=== PATIENT | female | born 1995 | race Caucasian/White ===

== ENCOUNTER 2018-03-21 10:47 | Outpatient (CLI) | payer OTHER, MEDICAID ==
--- NOTE | 2018-03-21 11:21 | Non Stress Test Report ---
Non Stress Test Datetime Report Generated by CPN: 03/21/2018 11:20 DEMOGRAPHIC EGA NST: 34.0 INDICATION Indication for Study: Ordered by Provider Indication for Study (NST) Other: repeat NST from office VITAL SIGNS Temperature - NST: 98.6 RESP - NST: 16 MONITORING Monitor Explained: Monitor Explained; Test Explained; Patient Verbalized Understanding Time on Monitor: 03/21/2018 10:52 Time off Monitor: 03/21/2018 11:18 NST Duration: 26 NST INTERVENTIONS NST Interventions: None Physician Notified NST: Dr Wheeler BABY A: [id number] BABY A Movement : Present Contraction Frequency : none FHR Baseline : 145 Accelerations : 15X15 Decelerations : None Variability : Moderate 6-25bpm Variability : Moderate 6-25bpm NST Review: Meets Criteria for Reactive NST NST Review and Verified By : suzanne patrick RN NST Results: Reactive NST REPORT Report Trigger: Send Report
== END 2018-03-21 11:25 | disposition home or self-care (01) ==
LOC: LC 10:47
PROVIDERS: ATTEND Obstetrics & Gynecology Gynecology
PROC: 4A1HXCZ Monitoring of Products of Conception, Cardiac Rate, External Approach (ICD-10-PCS; principal; 2018-03-21)
DX: Z34.90 Encounter for supervision of normal pregnancy, unspecified, unspecified trimester (principal); Z3A.33 33 weeks gestation of pregnancy
CPT/HCPCS: 59025

== ENCOUNTER 2018-03-26 08:09 | Outpatient (CLI) | payer OTHER, MEDICAID ==
[2018-03-26 08:35] LABS: APPEARANCE,URINE CLOUDY; BILIRUBIN,URINE SMALL (NEGATIVE); CALCIUM OXALATE CRYSTALS,URINE MANY /HPF; COLOR,URINE AMBER; GLUCOSE, URINE 50 mg/dL (NEGATIVE); KETONES,URINE 20 mg/dL (NEGATIVE); LEUKOCYTE ESTERASE,URINE MODERATE (NEGATIVE); NITRITE,URINE NEGATIVE (NEGATIVE); PROTEIN,URINE 100 mg/dL (NEGATIVE); URINE SPECIFIC GRAVITY 1.035
[2018-03-26] MEDS ORDERED: RINGERS SOLUTION,LACTATED 1,000 ML IV ONE (08:41)
[2018-03-26 09:15] LABS: URINE AMPHETAMINES SCREEN NEGATIVE; URINE BARBITURATES SCREEN NEGATIVE; URINE BENZODIAZEPINES SCREEN NEGATIVE; URINE COCAINE SCREEN NEGATIVE; URINE MARIJUANA (THC) SCREEN NEGATIVE; URINE METHADONE SCREEN NEGATIVE; URINE PHENCYCLIDINE SCREEN NEGATIVE
[2018-03-26] MEDS ORDERED: CEFTRIAXONE INJ 1000 MG VIAL ONE (09:59)
== END 2018-03-26 12:39 | disposition home or self-care (01) ==
LOC: LC 08:09
PROVIDERS: ATTEND Obstetrics & Gynecology
PROC: 4A1HXCZ Monitoring of Products of Conception, Cardiac Rate, External Approach (ICD-10-PCS; principal; 2018-03-26)
DX: O21.9 Vomiting of pregnancy, unspecified (principal); O26.893 Other specified pregnancy related conditions, third trimester; R10.2 Pelvic and perineal pain; R51 Headache; R35.0 Frequency of micturition; R42 Dizziness and giddiness; R19.7 Diarrhea, unspecified; Z3A.39 39 weeks gestation of pregnancy
CPT/HCPCS: 59025; 87086; 81001; 80307; J0696

== ENCOUNTER 2018-04-17 14:25 | Outpatient (CLI) | payer OTHER, MEDICAID ==
--- NOTE | 2018-04-17 15:45 | Non Stress Test Report ---
Non Stress Test Datetime Report Generated by CPN: 04/17/2018 15:45 DEMOGRAPHIC EGA NST: 37.6 EGA NST: 34.5 INDICATION Indication for Study: Diabetes Mellitus; Ordered by Provider Indication for Study: Other Indication for Study (NST) Other: LABOR CHECK VITAL SIGNS Temperature - NST: 98.3 Pulse - NST: 111 RESP - NST: 18 NBPSYS NST: 112 NBPDIA NST: 69 MONITORING Monitor Explained: Monitor Explained; Test Explained; Patient Verbalized Understanding Monitor Explained: Monitor Explained; Test Explained; Patient Verbalized Understanding Time on Monitor: 04/17/2018 14:37 Time on Monitor: 03/26/2018 08:35 Time off Monitor: 04/17/2018 15:04 Time off Monitor: 03/26/2018 12:22 NST Duration: 27 NST Duration: 227 NST INTERVENTIONS NST Interventions: PO Hydration; Reposition Patient NST Interventions: PO Hydration; IV Fluids; Reposition Patient Physician Notified NST: Isiah BERMUDEZ CNM REVIEWED STRIP (Annotations: Data stored by KELLI on behalf of user) Physician Notified NST: A QUINONES, CNM BABY A: [id number] BABY A Movement : Present Movement : Present Contraction Frequency : OCC Contraction Frequency : OCC FHR Baseline : 135 FHR Baseline : 130 Accelerations : 15X15 Accelerations : 15X15 Decelerations : None Decelerations : None Variability : Moderate 6-25bpm Variability : Moderate 6-25bpm NST Review: Meets Criteria for Reactive NST NST Review: Meets Criteria for Reactive NST NST Review and Verified By : Shelby Melchor [facility] NST Results: Reactive NST Results: Reactive NST REPORT Report Trigger: Send Report
== END 2018-04-17 15:07 | disposition home or self-care (01) ==
LOC: LC 14:25
PROVIDERS: ATTEND Obstetrics & Gynecology Gynecology
PROC: 4A1HXCZ Monitoring of Products of Conception, Cardiac Rate, External Approach (ICD-10-PCS; principal; 2018-04-17)
DX: O24.419 Gestational diabetes mellitus in pregnancy, unspecified control (principal); Z3A.37 37 weeks gestation of pregnancy
CPT/HCPCS: 59025

== ENCOUNTER 2018-04-22 11:39 | Outpatient (CLI) | payer OTHER, MEDICAID ==
--- NOTE | 2018-04-22 12:32 | Non Stress Test Report ---
Non Stress Test Datetime Report Generated by CPN: 04/22/2018 12:31 DEMOGRAPHIC EGA NST: 38.4 INDICATION Indication for Study: Diabetes Mellitus; Ordered by Provider VITAL SIGNS Temperature - NST: 99.2 Pulse - NST: 105 RESP - NST: 18 NBPSYS NST: 113 NBPDIA NST: 75 MONITORING Monitor Explained: Monitor Explained; Test Explained; Patient Verbalized Understanding Time on Monitor: 04/22/2018 11:47 Time off Monitor: 04/22/2018 12:21 NST Duration: 34 NST INTERVENTIONS NST Interventions: PO Hydration; Reposition Patient Physician Notified NST: A QUINONES, CNM REVIEWED STRIP BABY A: [id number] BABY A Movement : Present Contraction Frequency : x1 FHR Baseline : 145 Accelerations : 15X15 Decelerations : None Variability : Moderate 6-25bpm NST Review: Meets Criteria for Reactive NST NST Review and Verified By : PASTORA Fernandes Results: Reactive NST REPORT Report Trigger: Send Report
== END 2018-04-22 12:25 | disposition home or self-care (01) ==
LOC: LC 11:39
PROVIDERS: ATTEND Obstetrics & Gynecology Gynecology
PROC: 4A1HXCZ Monitoring of Products of Conception, Cardiac Rate, External Approach (ICD-10-PCS; principal; 2018-04-22)
DX: O24.415 Gestational diabetes mellitus in pregnancy, controlled by oral hypoglycemic drugs (principal); Z3A.38 38 weeks gestation of pregnancy
CPT/HCPCS: 59025

== ENCOUNTER 2018-04-25 18:09 | Inpatient (IN) | payer OTHER, MEDICAID ==
[2018-04-25] MEDS ORDERED: DINOPROSTONE 10 MG VAGINAL INSERT.SR ONE (18:24)
[2018-04-25 19:29] LABS: ABSOLUTE LYMPHOCYTES (AUTO) 1.7 10^3/uL (0.5-4.7); ABSOLUTE MONOCYTES (AUTO) 0.6 10^3/uL (0.1-1.4); BASOPHILS % (AUTO) 0.3 % (0-2); EOSINOPHILS % (AUTO) 0.3 % (0-6); HEMATOCRIT 27.6 % (36.0-47.0); HEMOGLOBIN 9.4 g/dL (12.0-15.5); LYMPHOCYTES % (AUTO) 17.8 % (13-45); MEAN CORPUSCULAR HEMOGLOBIN 25.2 pg (27.0-33.4); MEAN CORPUSCULAR HGB CONC 34.2 g/dL (32.0-36.0); MEAN CORPUSCULAR VOLUME 74 fl (80-97); MONOCYTES % (AUTO) 6.1 % (3-13); PLATELET COUNT 190 10^3/uL (150-450); RED BLOOD COUNT 3.74 10^6/uL (3.72-5.28); RED CELL DISTRIBUTION WIDTH 16.5 % (11.5-14.0); SEGMENTED NEUTROPHILS % (AUTO) 75.5 % (42-78); TOTAL CELLS COUNTED % (AUTO) 100 %; WHITE BLOOD COUNT 9.3 10^3/uL (4.0-10.5)
[2018-04-25] MEDS ORDERED: MISOPROSTOL 0.2 MG TABLET ONE (19:30)
[2018-04-25] MEDS ORDERED: OXYTOCIN/NORMAL SALINE 20 UNIT/1,000 ML RTUINJ ONE (19:30)
[2018-04-25] MEDS ORDERED: OXYTOCIN 10 UNIT/ML VIAL ONE (19:30)
[2018-04-25] MEDS ORDERED: LIDOCAINE 1% INJ-PF (10 MG/ML) 30 ML SDV ONE (19:30)
[2018-04-25 19:42] LABS: APPEARANCE,URINE CLOUDY; BILIRUBIN,URINE NEGATIVE (NEGATIVE); COLOR,URINE YELLOW; GLUCOSE, URINE NEGATIVE (NEGATIVE); KETONES,URINE 20 mg/dL (NEGATIVE); LEUKOCYTE ESTERASE,URINE LARGE (NEGATIVE); NITRITE,URINE NEGATIVE (NEGATIVE); PROTEIN,URINE NEGATIVE (NEGATIVE); URINE SPECIFIC GRAVITY 1.011; UROBILINOGEN,URINE NEGATIVE mg/dL (<2.0)
[2018-04-25 20:11] LABS: URINE AMPHETAMINES SCREEN NEGATIVE; URINE BARBITURATES SCREEN NEGATIVE; URINE BENZODIAZEPINES SCREEN NEGATIVE; URINE COCAINE SCREEN NEGATIVE; URINE MARIJUANA (THC) SCREEN NEGATIVE; URINE METHADONE SCREEN NEGATIVE; URINE PHENCYCLIDINE SCREEN NEGATIVE
[2018-04-26] MEDS ORDERED: OXYTOCIN/NORMAL SALINE 20 UNIT/1,000 ML RTUINJ IV PRN ×2 (08:38→12:46)
[2018-04-26] MEDS ORDERED: RINGERS SOLUTION,LACTATED 1,000 ML IV PRN (08:45)
[2018-04-26] MEDS ORDERED: EPHEDRINE SULFATE INJ 50 MG/1 ML AMPULE ONE (10:00)
[2018-04-26] MEDS ORDERED: PHENYLEPHRINE HCL INJ/PF 10 MG/1 ML SDV ONE (10:00)
[2018-04-26] MEDS ORDERED: FENTANYL CITRATE INJ/PF 100 MCG/2 ML AMPUL ONE ×2 (10:00→11:20)
[2018-04-26] MEDS ORDERED: BUPIVACAINE HCL 0.25 % INJ/PF (2.5 MG/1 ML) 30 ML VIAL ONE (10:00)
[2018-04-26] MEDS ORDERED: FENTANYL/BUPIVACAINE/NS/PF 0 MCG/0 ML RTUINJ EPI ONE (10:01)
[2018-04-26] MEDS ORDERED: METHYLERGONOVINE MALEATE INJ/PF 0.2 MG/1 ML AMPULE ONE (11:24)
--- NOTE | 2018-04-26 12:17 | Delivery Summary ---
Del Sum A-C Datetime Report Generated by CPN: 04/26/2018 12:17 DELIVERY PERSONNEL DELIVERY PERSONNEL: [id number] Delivery Doctor:: Gladys Dumont CNM Nurse Manager Security Certified:: Gladys Dumont CNM Labor and Delivery Nurse:: Salma Washington RNtruck switcher Nurse:: Zuleyka Tobar RN Nursery Nurse:: Nicholas Abid RN Student Observers:: [facility] MATERNAL INFORMATION Delivery Anesthesia: None Medications After Delivery: Pitocin Drip 20 Units/1000ml NSS; Methergine 0.2mg IM; Cytotec 1000mcg Per Rectum/Vagina Maternal Complications: None Complication Details: Shoulder Dystocia-1min 12 sec LABOR SUMMARY EDC: 05/02/2018 00:00 No. Babies in Womb: 1 Attempted: No Labor Anesthesia: None LABOR INFORMATION Reason for Induction: Polyhydramnios Reason for Induction- Other: GDM Onset of Labor: 04/26/2018 09:05 Complete Dilatation: 04/26/2018 10:50 Cervical Ripening Agents: Cervidil Oxytocin: Augmentation Group B Beta Strep: NEGATIVE MEMBRANES Membranes Rupture Method: Spontaneous Rupture of Membranes: 04/26/2018 09:00 Length of Rupture (hr): 2.15 Amniotic Fluid Color: Clear Amniotic Fluid Amount: Moderate Amniotic Fluid Odor: Normal STAGES OF LABOR Stage 1 hr: 1 Stage 1 min: 45 Stage 2 hr: 0 Stage 2 min: 19 Stage 3 hr: 0 Stage 3 min: 8 Total Time in Labor hr: 2 Total Time in Labor min: 12 VAGINAL DELIVERY Episiotomy: None Laceration #1: Periurethral Laceration Extension #1: Second Degree Laceration Repair: Yes Sponge Count Correct: N/A Sharps Count Correct: N/A BABY A INFORMATION Infant Delivery Date/Time: 04/26/2018 11:09 Method of Delivery: Vaginal Born in Route : No : N/A Forceps: N/A Vacuum Extraction: N/A Shoulder Dystocia : Yes SHOULDER DYSTOCIA BABY A Delivery of Head: 04/26/2018 11:08 Time Head to Delivery : 1.0 1st Intervention to Resolve: McRobert's Maneuver 2nd Intervention to Resolve: Suprapubic Pressure Verify NO Fundal Pressure: No Fundal Pressure Applied PRESENTATION/POSITION BABY A Presentation: Cephalic Cephalic Presentation: Vertex Vertex Position: Left Occipital Anterior Breech Presentation: N/A PLACENTA INFORMATION BABY A Placenta Delivery Time : 04/26/2018 11:17 Placenta Method of Delivery: Spontaneous Placenta Status: Delivered SCORES BABY A Heart Rate 1 min: >100 bpm Resp Effort 1 min: Good Cry Reflex Irritability 1 min: Cough or Sneeze or Pulls Away Muscle Tone 1 min: Some Flexion of Extremities Color 1 min: Body Long Barn, Extremities Blue SCORE 1 MIN: 8 Heart Rate 5 min: >100 bpm Resp Effort 5 min: Good Cry Reflex Irritability 5 min: Cough or Sneeze or Pulls Away Muscle Tone 5 min: Active Motion Color 5 min: Body Long Barn, Extremities Blue SCORE 5 MIN: 9 INFANT INFORMATION BABY A Gestational Age at Delivery: 39.1 Gestational Status: Full Term- 39- 40.6 Weeks Infant Outcome : Liveborn Condition : Stable Sex: Female IDENTIFICATION BABY A Verification Date/Time: 04/26/2018 11:40 ID Band Number: [id number] Mother's Name Verified: Yes RN Verifying : r emma RN Additional Verifying Personnel: troy lujanabdulaziz RN CORD INFORMATION BABY A No. Cord Vessels: 3 Nuchal Cord : N/A Cord Blood Taken: Yes-For Storage (Mom's Blood type +) Infant Suction: None ASSESSMENT BABY A Complications: Shoulder Dystocia Physical Findings at Delivery: Molding of the Head Respirations: Appears Normal Construction Contractor/ALS Called : No Care By: Nicholas Abdi RN Transferred To: Remains with Mother BABY B INFORMATION : N/A
[2018-04-26] MEDS ORDERED: METHYLERGONOVINE MALEATE INJ/PF 0.2 MG/1 ML AMPULE IM PRN (12:46)
[2018-04-26] MEDS ORDERED: ACETAMINOPHEN 650 MG SUPP.RECT PR PRN (12:46)
[2018-04-26] MEDS ORDERED: MAGNESIUM HYDROXIDE SUSP 30 ML UDCUP PO PRN (12:46)
[2018-04-26] MEDS ORDERED: MEASLES,MUMPS&RUBELLA VACC/PF 0.5 ML VIAL SUBCUT PRN (12:46)
[2018-04-26] MEDS ORDERED: DIBUCAINE 1% OINTMENT 28 GM TP PRN (12:46)
[2018-04-26] MEDS ORDERED: GLYCERIN/WITCH HAZEL LEAF 1 EACH MED..PAD TP PRN (12:46)
[2018-04-26] MEDS ORDERED: ZOLPIDEM TARTRATE 5 MG TABLET PO PRN (12:46)
[2018-04-26] MEDS ORDERED: DIPHENHYDRAMINE HCL 25 MG CAPSULE PO PRN (12:46)
[2018-04-26] MEDS ORDERED: PROMETHAZINE HCL 25 MG TABLET PO PRN (12:46)
[2018-04-26] MEDS ORDERED: DIPH/PERTUSS(ACELL)/TETANUS VAC/PF 0.5 ML SYR (>=10YO) IM PRN (12:46)
[2018-04-26] MEDS ORDERED: MISOPROSTOL 0.2 MG TABLET PR PRN (12:46)
[2018-04-26] MEDS ORDERED: NA PHOS,M-B/NA PHOS,DI-BA (ADULT) 133 ML ENEMA PR PRN (12:46)
[2018-04-26] MEDS ORDERED: ACETAMINOPHEN WITH CODEINE #3 TABLET PO PRN ×2 (12:46)
[2018-04-26] MEDS ORDERED: PROMETHAZINE HCL INJ 25 MG/1 ML VIAL IV PRN (12:46)
[2018-04-26] MEDS ORDERED: PROMETHAZINE HCL 25 MG SUPP.RECT PR PRN (12:46)
[2018-04-26] MEDS ORDERED: PSEUDOEPHEDRINE HCL 30 MG TABLET PO PRN (12:46)
--- NOTE | 2018-04-26 13:07 | Admission Physical ---
Datetime Report Generated by CPN: 04/26/2018 13:06 CURRENT ADMISSION Chief Complaint: Scheduled Induction of Labor Indication for Induction: Maternal Diabetes Indication for Induction- Other: gestational diabetes, polyhydramnios Admit Impression : Term, Intrauterine ; No Active Labor Admit Plan: Admit to Unit; Initiate Labor Induction Protocol Admit Plan- Other: s/p cervidil this am, SROM at approx 0845 and pitocin started ALLERGIES Medication Allergies: No Medication Allergies: No Known Allergies (04/22/2018) Latex: No Latex Allergies OBSTETRICAL HISTORY EDC: 05/02/2018 00:00 : 1 Para: 0 Term: 0 : 0 SAB: 0 IAB: 0 Ectopic: 0 Livin Cesareans: 0 VBACs: 0 Multiple Births: 0 Gestational Diabetes: Yes Rh Sensitization: No Incompetent Cervix: No DIMAS: No Infertility: No ART Treatment: No Uterine Anomaly: No IUGR: No Hx Previous C/S: No Macrosomia: No Hx Loss/Stillborn: No PIH: No Hx : No Placenta Previa/Abruption: No Depression/PP Depression: No PTL/PROM: No Post Hemorrhage: No Current Procedures: Ultrasound Obstetrical History Comments: Current - GDM on metformin, pt was told that she was unable to conceive, pt became w/o infertility drugs. SEE RECORDS Alcohol: No Marijuana : No Cocaine: No Other Illicit Drugs: No Cigarettes: Never Smoker. [id number] MEDICAL HISTORY Diabetes: Yes Diabetes Type: Gestational Diabetes Blood Transfusion: No Pulmonary Disease (Asthma, TB): No Breast Disease: No Hypertension: No Trucker Surgery: No Heart Disease: No Hosp/Surgery: No Autoimmune Disorder: No Anesthetic Complications: No Kidney Disease: No Abnormal Pap Smear: No Neuro/Epilepsy: No Psychiatric Disorders: No Other Medical Diseases: No Hepatitis/Liver Disease: No Significant Family History: No Varicosities/Phlebitis: No Trauma/Violence : No Thyroid Dysfunction: No Medical History Comments: pituitary adenoma, pt was taking medication before for it, will resume taking meds after delivery. INFECTIOUS HISTORY Gonorrhea: No Genital Herpes: No Chlamydia: No Tuberculosis: No Syphilis: No Hepatitis: No HIV/AIDS Exposure: No Rash or Viral Illness: No HPV: No PHYSICAL EXAM General: Normal HEENT: Normal Neurologic: Normal Thyroid: Deferred Heart: Normal Lungs: Normal Breast: Deferred Back: Normal Abdomen: Normal Genitourinary Exam: Normal Extremities: Normal DTRs: Deferred Pelvic Type: Adequate Vital Signs: Reviewed; Within Normal Limits MEMBRANES Membranes: Ruptured Amniotic Fluid Color: Clear FETUS A EGA: 39.1 Monitoring: External US FHR- Baseline: 135 Variability: Moderate 6-25bpm Accelerations: 15X15 Decelerations: Variable FHR Category: Category II Admit Comment: at 39+1 with GDM and polyhydramnios admitted for IOL PLANS FOR LABOR AND DELIVERY Labor and Delivery: None Pain Management: Natural; Medications; Epidural Feeding Preference: Formula Benefit of Breast Feed Discussed: Yes Circumcision: N/A INFORMED CONSENT Assignment: Cassandra Zuniga MD Signature: with User ID: [email or web address] : with User ID: [email or web address]
[2018-04-26] MEDS: IBUPROFEN 800 MG TABLET PO SCH ×2 (14:23→21:45)
[2018-04-26] MEDS: FERROUS SULFATE 325 MG TABLET PO SCH (18:22)
[2018-04-26] MEDS: DOCUSATE SODIUM 100 MG CAPSULE PO SCH (18:22)
[2018-04-26] MEDS: FAMOTIDINE 20 MG TABLET PO SCH (21:46)
[2018-04-27] MEDS: IBUPROFEN 800 MG TABLET PO SCH ×3 (05:03→22:19)
[2018-04-27 08:15] LABS: ABSOLUTE LYMPHOCYTES (AUTO) 1.6 10^3/uL (0.5-4.7); ABSOLUTE MONOCYTES (AUTO) 0.6 10^3/uL (0.1-1.4); ABSOLUTE NEUT (AUTO) 7.6 10^3/uL (1.7-8.2); BASOPHILS % (AUTO) 0.2 % (0-2); EOSINOPHILS % (AUTO) 0.2 % (0-6); HEMATOCRIT 25.6 % (36.0-47.0); HEMOGLOBIN 8.7 g/dL (12.0-15.5); LYMPHOCYTES % (AUTO) 16.6 % (13-45); MEAN CORPUSCULAR HEMOGLOBIN 25.3 pg (27.0-33.4); MEAN CORPUSCULAR VOLUME 74 fl (80-97); MONOCYTES % (AUTO) 6.1 % (3-13); PLATELET COUNT 162 10^3/uL (150-450); RED BLOOD COUNT 3.44 10^6/uL (3.72-5.28); RED CELL DISTRIBUTION WIDTH 16.5 % (11.5-14.0); SEGMENTED NEUTROPHILS % (AUTO) 76.9 % (42-78); TOTAL CELLS COUNTED % (AUTO) 100 %; WHITE BLOOD COUNT 9.9 10^3/uL (4.0-10.5)
--- NOTE | 2018-04-27 09:35 | PDOC PROGRESS REPORT ---
Subjective-OB Progress Note for:: 04/27/18 Subjective: reports bleeding slowing, pain controlled with current meds. denies needs. Physical Exam (OB) Vital Signs: Temp Pulse Resp BP Pulse Ox 98.0 F 87 16 117/76 100 04/27/18 08:34 04/27/18 08:34 04/27/18 08:34 04/27/18 08:34 04/27/18 08:34 Intake & Output 04/26/18 04/27/18 04/28/18 06:59 06:59 06:59 Intake Total 200 Balance 200 Weight 84.9 kg - Abdomen Description: Soft, Round Hernia Present: No Fundal Description: Firm, Midline Fundal Height: u/u - u/2 - Abdominal Distension: No distension Tenderness: Nontender - Extremities Lower extremities: Reymundo's sign - neg Calf: Normal, Nontender Objective-Diagnostic Laboratory: 04/27/18 06:52 04/27/18 06:52 WBC 9.9 RBC 3.44 L Hgb 8.7 L Hct 25.6 L MCV 74 L MCH 25.3 L MCHC 34.0 RDW 16.5 H Plt Count 162 Seg Neutrophils % 76.9 Lymphocytes % 16.6 Monocytes % 6.1 Eosinophils % 0.2 Basophils % 0.2 Absolute Neutrophils 7.6 Absolute Lymphocytes 1.6 Absolute Monocytes 0.6 Absolute Eosinophils 0.0 Absolute Basophils 0.0 Assessment and Plan(PN) - Assessment and Plan (1) Gestational diabetes mellitus (GDM) Is this a current diagnosis for this admission?: Yes (2) Polyhydramnios affecting Is this a current diagnosis for this admission?: Yes (3) hemorrhage Qualifiers: hemorrhage type: other immediate Qualified Code(s): O72.1 - Other immediate hemorrhage Is this a current diagnosis for this admission?: Yes (4) Shoulder dystocia during labor and delivery, delivered Is this a current diagnosis for this admission?: Yes - Time Spent with Patient Time with patient: Less than 15 minutes Medications reviewed and adjusted accordingly: Yes - Disposition Anticipated Discharge: Home Within: within 24 hours
[2018-04-27] MEDS: SENNOSIDES/DOCUSATE 8.6-50 MG 1 EACH TABLET PO SCH (11:08)
[2018-04-27] MEDS: PRENATAL VITAMIN W DHA CAPSULE PO SCH (11:08)
[2018-04-27] MEDS: DOCUSATE SODIUM 100 MG CAPSULE PO SCH ×2 (11:08→17:21)
[2018-04-27] MEDS: FAMOTIDINE 20 MG TABLET PO SCH ×2 (11:08→22:19)
[2018-04-27] MEDS: FERROUS SULFATE 325 MG TABLET PO SCH ×2 (11:08→17:22)
[2018-04-27] MEDS: BENZOCAINE/MENTHOL AEROSOL SPRAY 56 ML TOP PRN (17:27)
[2018-04-28] MEDS: IBUPROFEN 800 MG TABLET PO SCH (05:49)
--- NOTE | 2018-04-28 08:52 | PDOC DISCHARGE SUMMARY ---
Final Diagnosis Discharge Date: 04/28/18 - Final Diagnosis (1) Gestational diabetes mellitus (GDM) Is this a current diagnosis for this admission?: Yes (2) Polyhydramnios affecting Is this a current diagnosis for this admission?: Yes (3) hemorrhage Is this a current diagnosis for this admission?: Yes (4) Shoulder dystocia during labor and delivery, delivered Is this a current diagnosis for this admission?: Yes Discharge Data - Discharge Medication Prescriptions: Ibuprofen [Motrin 800 mg Tablet] 800 mg PO Q8HP PRN #60 tablet PRN Reason: Pnv72/Iron,Gluc/Folic/Dss/Dha [Citranatal 90 Dha Combo Pack] 1 each PO DAILY # 90 combo..pkg Home Medications: Ibuprofen [Motrin 800 mg Tablet] 800 mg PO Q8HP PRN #60 tablet 04/28/18 Pnv72/Iron,Gluc/Folic/Dss/Dha [Citranatal 90 Dha Combo Pack] 1 each PO DAILY # 90 combo..pkg 04/28/18 Reason(s) for Admission: Induction of Labor Intrapartum Procedure(s): Spontaneous Vaginal Delivery, Other - shoulder dystocia Complication(s): Laceration-Perineal, Laceration-Periurethral Laceration-Degree: 2nd - Diagnosis Test Laboratory: Temp Pulse Resp BP Pulse Ox 98.2 F 81 16 119/81 98 04/28/18 07:24 04/28/18 07:24 04/28/18 07:24 04/28/18 07:24 04/28/18 07:24 04/25/18 04/25/18 04/27/18 19:15 19:15 06:52 RBC 3.74 3.44 L Hgb 9.4 L 8.7 L Hct 27.6 L 25.6 L Urine Opiates Screen NEGATIVE - Discharge information/Instructions Discharge Activity: Balance Activity w/Rest, Pelvic Rest Discharge Diet: Regular Disposition: HOME, SELF-CARE Follow up with: [facility] in: 4, Weeks
--- NOTE | 2018-04-28 08:54 | PDOC DISCHARGE SUMMARY ---
Final Diagnosis Discharge Date: 04/28/18 - Final Diagnosis (1) Shoulder dystocia during labor and delivery, delivered Is this a current diagnosis for this admission?: Yes (2) Gestational diabetes mellitus (GDM) Is this a current diagnosis for this admission?: Yes (3) Polyhydramnios affecting Is this a current diagnosis for this admission?: Yes (4) hemorrhage Is this a current diagnosis for this admission?: Yes Discharge Data - Discharge Medication Prescriptions: Ibuprofen [Motrin 800 mg Tablet] 800 mg PO Q8HP PRN #60 tablet PRN Reason: Pnv72/Iron,Gluc/Folic/Dss/Dha [Citranatal 90 Dha Combo Pack] 1 each PO DAILY # 90 combo..pkg Home Medications: Ibuprofen [Motrin 800 mg Tablet] 800 mg PO Q8HP PRN #60 tablet 04/28/18 Pnv72/Iron,Gluc/Folic/Dss/Dha [Citranatal 90 Dha Combo Pack] 1 each PO DAILY # 90 combo..pkg 04/28/18 Reason(s) for Admission: Induction of Labor Procedures: NST Intrapartum Procedure(s): Spontaneous Vaginal Delivery Complication(s): Laceration-Perineal, Laceration-Periurethral Laceration-Degree: 2nd - Diagnosis Test Laboratory: Temp Pulse Resp BP Pulse Ox 98.2 F 81 16 119/81 98 04/28/18 07:24 04/28/18 07:24 04/28/18 07:24 04/28/18 07:24 04/28/18 07:24 04/25/18 04/25/18 04/27/18 19:15 19:15 06:52 RBC 3.74 3.44 L Hgb 9.4 L 8.7 L Hct 27.6 L 25.6 L Urine Opiates Screen NEGATIVE - Discharge information/Instructions Discharge Activity: Balance Activity w/Rest, Pelvic Rest Discharge Diet: Regular Disposition: HOME, SELF-CARE Follow up with: [facility] in: 4, Weeks
[2018-04-28 10:06] VITALS: BP 122/77
[2018-04-28] MEDS: FERROUS SULFATE 325 MG TABLET PO SCH (10:32)
[2018-04-28] MEDS: DOCUSATE SODIUM 100 MG CAPSULE PO SCH (10:32)
[2018-04-28] MEDS: SENNOSIDES/DOCUSATE 8.6-50 MG 1 EACH TABLET PO SCH (10:32)
[2018-04-28] MEDS: BENZOCAINE/MENTHOL AEROSOL SPRAY 56 ML TOP PRN (10:32)
[2018-04-28] MEDS: FAMOTIDINE 20 MG TABLET PO SCH (10:32)
[2018-04-28] MEDS: PRENATAL VITAMIN W DHA CAPSULE PO SCH (10:32)
== END 2018-04-28 13:44 | disposition home or self-care (01) | DRG 806 ==
LOC: LR 18:09 → 2S 04-26 14:11
PROVIDERS: ADMIT Obstetrics & Gynecology Gynecology; ATTEND Obstetrics & Gynecology Gynecology
PROC: 4A1HXCZ Monitoring of Products of Conception, Cardiac Rate, External Approach (ICD-10-PCS; 2018-04-25)
PROC: 10E0XZZ Delivery of Products of Conception, External Approach (ICD-10-PCS; principal; 2018-04-26)
PROC: 0KQM0ZZ Repair Perineum Muscle, Open Approach (ICD-10-PCS; 2018-04-26)
PROC: 3E0P7VZ Introduction of Hormone into Female Reproductive, Via Natural or Artificial Opening (ICD-10-PCS; 2018-04-26)
PROC: 3E0234Z Introduction of Serum, Toxoid and Vaccine into Muscle, Percutaneous Approach (ICD-10-PCS; 2018-04-28)
DX: O24.425 Gestational diabetes mellitus in childbirth, controlled by oral hypoglycemic drugs (principal); O72.1 Other immediate postpartum hemorrhage; Z37.0 Single live birth; O66.0 Obstructed labor due to shoulder dystocia; O40.3XX0 Polyhydramnios, third trimester, not applicable or unspecified; O70.1 Second degree perineal laceration during delivery; Z3A.39 39 weeks gestation of pregnancy; Z23 Encounter for immunization
CPT/HCPCS: 36415; 80307; 81005; 85025; 86592; 86850; 86870; 86900; 86901; 90707; 94760; J2210; J2370; J2590; J3010; J3490